=== PATIENT | male | born 1965 | race Caucasian/White ===

== ENCOUNTER → 2019-06-28 | Outpatient (CLI) | payer OTHER ==
--- NOTE | 2019-06-29 12:30 | RADIOLOGY REPORT ---
STRESS TEST REPORT PATIENT NAME: ERI MURRAY JR ROOM#: DATE OF SERVICE: 06/28/2019 AGE: 53Y ORDER#: [id number] REFERRING MD: ANDREW EDWARDS M.D. PROCEDURE PERFORMED: Rest/stress single isotope Cardiolite SPECT imaging with treadmill EKG stress and gated SPECT imaging. INDICATION: For assessment of atypical chest pain. CLINICAL HISTORY: This is a 53-year-old male with no known coronary artery disease but complains of atypical chest pains with coronary risk factors of hypertension. REPORT: The patient performed treadmill exercise using a standard Vimal protocol, completing 5 minutes 30 seconds and an estimated workload of 6.5 METS. The resting heart rate was 85 bpm and increased to 150 bpm at peak exercise, and this was 89% of the maximum predicted heart rate for age. The blood pressure response to exercise was flat. Resting blood pressure was 120/71, and at peak exercise the blood pressure was only 122/74; post exercise it gradually went up to 152/62. The patient had no chest pain during this procedure, specifically no atypical chest pains. His limiting factor was his back pain. The resting 12-lead EKG showed normal sinus rhythm at 85 bpm, were normal. At peak exercise [address] depression was seen in leads II, III, aVF, and V4 to V6. Myocardial perfusion imaging was performed at rest 60 minutes following the injection of 15.13 mCi of Cardiolite. At peak exercise the patient was injected with 44.0 mCi of Cardiolite, and exercise continued for one more minute. Gated post-stress tomographic imaging was performed 20 minutes after the stress. FINDINGS: The overall quality of the study is good. Left ventricular cavity is noted to be normal in size on both the rest and stress studies. There is no evidence of abnormal transient ischemic dilatation of the left ventricle; TID ratio was 1.05 and normal. SPECT images showed no reversible ischemia, but there was a moderate sized severe fixed perfusion defect in the basal inferior wall. Gated SPECT imaging showed reduced motion and contraction in the basal inferior wall segment. The left ventricular ejection fraction was calculated to be 53%. IMPRESSION: Myocardial perfusion imaging is abnormal. There is a moderate sized severe fixed perfusion defect in the basal inferior wall with no reversible ischemia. The left ventricular systolic function was low normal at 53%, and significant reduced motion contraction was seen in the basal inferior wall segment. No prior studies for comparison. RECOMMENDATION: Begin optimal medical treatment. INTERPRETING PHYSICIAN: ANDREW EDWARDS M.D. /: 1209M TT: 1253 ID: [id number] /: [id number] TD: [id number] JOB: [id number] cc:ANDREW EDWARDS M.D. >
== END ==
LOC: RAD 06:30
PROVIDERS: ATTEND Internal Medicine Cardiovascular Disease
DX: R07.9 Chest pain, unspecified (principal)
CPT/HCPCS: 93017; 78452; A9500; Q9969

== ENCOUNTER → 2019-07-22 | Outpatient (CLI) | payer OTHER ==
[2019-07-22 08:29] LABS: ALBUMIN 4.5 g/dL (3.5-5.0); ALKALINE PHOSPHATASE 79 U/L (38-126); ANION GAP 10 (5-19); ASPARTATE AMINO TRANSFERASE 28 U/L (17-59); BILIRUBIN,DIRECT 0.1 mg/dL (0.0-0.4); BILIRUBIN,TOTAL 0.9 mg/dL (0.2-1.3); BLOOD UREA NITROGEN 19 mg/dL (7-20); CALCIUM 9.7 mg/dL (8.4-10.2); CARBON DIOXIDE 30 mmol/L (22-30); CHLORIDE 98 mmol/L (98-107); CHOLESTEROL 204.73 mg/dL (0-200); GLUCOSE 111 mg/dL (75-110); POTASSIUM 4.4 mmol/L (3.6-5.0); TOTAL PROTEIN 6.9 g/dL (6.3-8.2); TRIGLYCERIDES 230 mg/dL (<150)
[2019-07-22 08:40] LABS: DIRECT LDL 132 mg/dL (<100)
== END ==
LOC: LAB 07:46
PROVIDERS: ATTEND Internal Medicine Cardiovascular Disease
DX: R07.9 Chest pain, unspecified (principal); E78.1 Pure hyperglyceridemia; I10 Essential (primary) hypertension; Z79.899 Other long term (current) drug therapy
CPT/HCPCS: 36415; 80048; 80061; 80076

== ENCOUNTER → 2019-09-06 | Outpatient (CLI) | payer OTHER ==
[2019-09-06 08:49] LABS: ALBUMIN 4.6 g/dL (3.5-5.0); ALKALINE PHOSPHATASE 87 U/L (38-126); ASPARTATE AMINO TRANSFERASE 26 U/L (17-59); BILIRUBIN,TOTAL 0.9 mg/dL (0.2-1.3); TRIGLYCERIDES 298 mg/dL (<150)
[2019-09-06 09:01] LABS: DIRECT LDL 85 mg/dL (<100)
[2019-09-06 09:09] LABS: VLDL CHOLESTEROL 59.6 mg/dL (10-31)
== END ==
LOC: LAB 07:57
PROVIDERS: ATTEND Internal Medicine Cardiovascular Disease
DX: E78.1 Pure hyperglyceridemia (principal); Z79.899 Other long term (current) drug therapy
CPT/HCPCS: 36415; 80061; 80076

== ENCOUNTER → 2019-11-29 | Outpatient (CLI) | payer OTHER ==
[2019-11-29 08:20] LABS: ALBUMIN 4.5 g/dL (3.5-5.0); ALKALINE PHOSPHATASE 93 U/L (38-126); ANION GAP 7 (5-19); ASPARTATE AMINO TRANSFERASE 31 U/L (17-59); BILIRUBIN,TOTAL 0.8 mg/dL (0.2-1.3); BLOOD UREA NITROGEN 18 mg/dL (7-20); CALCIUM 9.5 mg/dL (8.4-10.2); CARBON DIOXIDE 35 mmol/L (22-30); CHLORIDE 96 mmol/L (98-107); CHOLESTEROL 163.14 mg/dL (0-200); GLUCOSE 121 mg/dL (75-110); POTASSIUM 4.5 mmol/L (3.6-5.0); TOTAL PROTEIN 7.2 g/dL (6.3-8.2); TRIGLYCERIDES 334 mg/dL (<150)
[2019-11-29 08:31] LABS: DIRECT LDL 72 mg/dL (<100)
[2019-11-29 08:40] LABS: VLDL CHOLESTEROL 66.8 mg/dL (10-31)
== END ==
LOC: LAB 07:45
PROVIDERS: ATTEND Internal Medicine Cardiovascular Disease
DX: E78.2 Mixed hyperlipidemia (principal); I10 Essential (primary) hypertension; Z79.899 Other long term (current) drug therapy
CPT/HCPCS: 36415; 80048; 80061; 80076

== ENCOUNTER → 2020-04-11 | Outpatient (CLI) | payer OTHER ==
[2020-04-11 09:27] LABS: ALBUMIN 4.2 g/dL (3.5-5.0); ALKALINE PHOSPHATASE 81 U/L (38-126); ANION GAP 11 (5-19); ASPARTATE AMINO TRANSFERASE 79 U/L (17-59); BILIRUBIN,TOTAL 0.6 mg/dL (0.2-1.3); BLOOD UREA NITROGEN 23 mg/dL (7-20); CALCIUM 9.2 mg/dL (8.4-10.2); CARBON DIOXIDE 28 mmol/L (22-30); CHLORIDE 99 mmol/L (98-107); CHOLESTEROL 134.65 mg/dL (0-200); GLUCOSE 107 mg/dL (75-110); POTASSIUM 4.4 mmol/L (3.6-5.0); TOTAL PROTEIN 6.7 g/dL (6.3-8.2)
[2020-04-11 09:29] LABS: TRIGLYCERIDES 184 mg/dL (<150)
[2020-04-11 09:38] LABS: DIRECT LDL 69 mg/dL (<100)
[2020-04-11 09:40] LABS: VLDL CHOLESTEROL 36.8 mg/dL (10-31)
== END ==
LOC: OD 08:11
PROVIDERS: ATTEND Internal Medicine Cardiovascular Disease
DX: E78.2 Mixed hyperlipidemia (principal); I10 Essential (primary) hypertension; R73.01 Impaired fasting glucose; Z79.899 Other long term (current) drug therapy
CPT/HCPCS: 36415; 80048; 80061; 80076; 83036

== ENCOUNTER → 2020-05-22 | Outpatient (CLI) | payer OTHER ==
[2020-05-22 08:59] LABS: ALBUMIN 4.5 g/dL (3.5-5.0); ALKALINE PHOSPHATASE 84 U/L (38-126); ASPARTATE AMINO TRANSFERASE 29 U/L (17-59); BILIRUBIN,TOTAL 0.9 mg/dL (0.2-1.3); TOTAL PROTEIN 6.4 g/dL (6.3-8.2)
[2020-05-23 08:37] LABS: HEPATITS B SURFACE ANTIGEN Negative (Negative)
[2020-05-23 08:42] LABS: HEPATITIS C VIRUS ANTIBODY 0.1 s/co ratio (0.0-0.9)
== END ==
LOC: OD 07:42
PROVIDERS: ATTEND Physician Assistant
DX: R94.5 Abnormal results of liver function studies (principal)
CPT/HCPCS: 36415; 80074; 80076

== ENCOUNTER → 2020-06-14 | Outpatient (CLI) | payer OTHER ==
--- NOTE | 2020-06-14 11:05 | RADIOLOGY REPORT (SQ) ---
EXAM DESCRIPTION: U/S ABDOMEN LIMITED W/O DOP IMAGES COMPLETED DATE/TIME: 06/14/2020 8:55 am REASON FOR STUDY: ABN LIVER FUNCTION STUDIES (R94.5) R94.5 ABNORMAL RESULTS OF LIVER FUNCTION STUDI ES COMPARISON: None. TECHNIQUE: Dynamic and static grayscale images acquired of the abdomen and recorded on PACS. Additio nal selected color Doppler and spectral images recorded. LIMITATIONS: Limited visualization due to acoustic impedance. FINDINGS: PANCREAS: No masses. No peripancreatic edema or fluid collections. LIVER: Echotexture is coarse with increased echogenicity consistent with fatty infiltration. LIVER VASCULATURE: Normal directional flow of the main portal vein and hepatic veins. GALLBLADDER: No stones. Normal wall thickness. No pericholecystic fluid. ULTRASOUND-DETECTED MITTAL'S SIGN: Negative. INTRAHEPATIC DUCTS AND COMMON DUCT: CBD and intrahepatic ducts normal caliber. No filling defects. INFERIOR VENA CAVA: Normal flow. AORTA: Normal as visualized. RIGHT KIDNEY: Normal size. Normal echogenicity. No solid or suspicious masses. No hydronephros is. No calcifications. PERITONEAL AND RIGHT PLEURAL SPACE: No ascites or effusions. OTHER: No other significant finding. IMPRESSION: FATTY INFILTRATION OF THE LIVER. OTHERWISE NORMAL RIGHT UPPER QUADRANT ULTRASOUND. TECHNICAL DOCUMENTATION: JOB ID: [id number] [employer]- All Rights Reserved Reading location - IP/workstation name: [email or web address]
== END ==
LOC: RAD 08:07
PROVIDERS: ATTEND Internal Medicine Gastroenterology
DX: K76.0 Fatty (change of) liver, not elsewhere classified (principal); R94.5 Abnormal results of liver function studies
CPT/HCPCS: 76705

== ENCOUNTER → 2020-07-31 | Outpatient (CLI) | payer OTHER ==
[2020-07-31 09:29] LABS: ALBUMIN 4.7 g/dL (3.5-5.0); ALKALINE PHOSPHATASE 105 U/L (38-126); ASPARTATE AMINO TRANSFERASE 28 U/L (17-59); BILIRUBIN,DIRECT 0.3 mg/dL (0.0-0.4); BILIRUBIN,TOTAL 0.9 mg/dL (0.2-1.3); TOTAL PROTEIN 7.1 g/dL (6.3-8.2)
[2020-08-01 06:37] LABS: HEPATITIS B CORE AB TOT Negative (Negative); HEPATITS B SURFACE ANTIGEN Negative (Negative)
[2020-08-01 07:06] LABS: HEPATITIS B SURFACE AB QUAL Non Reactive (.); HEPATITIS BE ANTIGEN Negative (Negative)
== END ==
LOC: OD 08:13
PROVIDERS: ATTEND Internal Medicine Gastroenterology
DX: R94.5 Abnormal results of liver function studies (principal)
CPT/HCPCS: 36415; 80076; 86704; 86705; 86706; 86707; 87340; 87350